=== PATIENT | male | born 1980 | race Caucasian/White ===

== ENCOUNTER 2017-03-18 07:40 | Emergency (ER) | payer OTHER ==
[2017-03-18 07:50] VITALS: BP 149/87
[2017-03-18] MEDS ORDERED: Morphine 4 MG/ML Syringe IVPUSH ONE (07:50)
[2017-03-18] MEDS ORDERED: Ketorolac 30 MG/ML SDV IVPUSH ONE (07:50)
--- NOTE | 2017-03-18 08:26 | EDM.PDOC ---
ED HPI GENERAL MEDICAL PROBLEM - General Chief Complaint: Back Pain or Injury Stated Complaint: POST FALL Time Seen by Provider: 03/18/17 08:11 Source of Information: Reports: Patient, Family () History Limitations: Reports: No Limitations - History of Present Illness INITIAL COMMENTS - FREE TEXT/NARRATIVE: Patient presents with right rib/chest pain. Two days ago he fell while checking a farm implement and hit ribcage on metal frame. He went to clinic and had xrays which were normal. This morning when he was tying his shoes he felt a sharp pop just posterior to the impact point and continues to have sharp pain there 01/14. It hurts to breathe deeply but no true dyspnea. No other injuries. Right Chest Pain Score (Numeric/FACES): 10 - Related Data Allergies Allergy/AdvReac Type Severity Reaction Status Date / Time Enaukiu-Mwf-Utt Reductase Allergy Muscle Verified 03/18/17 08:11 Inhibitor Aches Home Meds: Home Meds Gemfibrozil [Gemfibrozil] 1 tab PO BID 01/23/14 [History] Omeprazole [Prilosec] 20 mg PO DAILY 01/23/14 [History] Hydrocodone/Acetaminophen [Hydrocodon-Acetaminophn 10-325] 1 tab PO BEDTIME 05/23 [History] Social & Family History - Tobacco Use Smoking Status *Q: Current Every Day Smoker Years of Tobacco use: 20 Packs/Tins Daily: 1 Used Tobacco, but Quit: No - Caffeine Use Caffeine Use: Reports: Soda - Recreational Drug Use Recreational Drug Use: No ED ROS GENERAL - Review of Systems Review Of Systems: ROS reveals no pertinent complaints other than HPI. ED EXAM, UPPER BACK/NECK PAIN - Physical Exam Exam: See Below Exam Limited By: No Limitations General Appearance: Alert, WD/WN, No Apparent Distress Eye Exam: Bilateral Eye: EOMI, Normal Inspection, PERRL Ears Exam: Normal External Exam, Hearing Grossly Normal Nose Exam: Normal Inspection, No Blood Throat/Mouth Exam: Normal Inspection, Normal Lips, Normal Voice, No Airway Compromise Head Exam: Atraumatic, Normocephalic Neck Exam: Non-Tender, Full Range of Motion, Normal Inspection. No: Stiff Neck , Tenderness, Tender Lateral, Tender Midline Cardiovascular/Respiratory: Regular Rate, Rhythm, Normal Breath Sounds, No Respiratory Distress GI/Abdominal: Soft, No Organomegaly, No Distention Back Exam: Normal Inspection, Full Range of Motion, CVA Tenderness (R). No: CVA Tenderness (L), Paraspinal Tenderness, Vertebral Tenderness Extremities: Normal Inspection, Normal Range of Motion, Non-Tender Neurologic: No Motor/Sensory Deficits, Alert, Normal Mood/Affect, Oriented x 3 Psychiatric: Normal Affect, Normal Mood Skin Exam: Normal Color, Warm/Dry Course - Vital Signs Last Recorded V/S: Last Vital Signs Temp 99.4 F 03/18/17 07:46 Pulse 84 03/18/17 07:46 Resp 24 H 03/18/17 07:46 BP 149/87 H 03/18/17 07:46 Pulse Ox 96 03/18/17 07:46 - Orders/Labs/Meds Orders: Active Orders 24 hr Category Date Time Status Abdomen Pelvis w Cont [CT] Stat Exams 03/18/17 08:38 Ordered Ribs 2V wo Chest Rt [CR] Stat Exams 03/18/17 07:50 Taken UA W/MICROSCOPIC [URIN] Stat Lab 03/18/17 08:45 Uncollected Sodium Chloride 0.9% [Normal Saline] Med 03/18/17 09:00 Active 50 ml FLUSH ASDIRECTED Sodium Chloride 0.9% [Syrex Flush] Med 03/18/17 07:58 Active 5 ml FLUSH ASDIRECTED PRN Medication Orders Sodium Chloride (Syrex Flush) 5 ml FLUSH ASDIRECTED PRN PRN Reason: Keep Vein Open Last Admin: 03/18/17 08:28 Dose: 5 ml Admin: 03/18/17 08:27 Dose: 5 ml Sodium Chloride (Normal Saline) 50 ml FLUSH ASDIRECTED JOELLE Last Admin: 03/18/17 09:15 Dose: 50 ml Meds: Medications Generic Name Dose Route Start Last Admin Trade Name Freq PRN Reason Stop Dose Admin Sodium Chloride 5 ml 03/18/17 07:58 03/18/17 08:28 Syrex Flush FLUSH 5 ml ASDIRECTED PRN Administration Keep Vein Open Sodium Chloride 50 ml 03/18/17 09:00 03/18/17 09:15 Normal Saline FLUSH 50 ml ASDIRECTED JOELLE Administration Discontinued Medications Generic Name Dose Route Start Last Admin Trade Name Freq PRN Reason Stop Dose Admin Iopamidol 75 ml 03/18/17 08:52 03/18/17 09:15 Isovue-300 (61%) IV 03/18/17 08:53 75 ml ONETIME ONE Administration Ketorolac Tromethamine 30 mg 03/18/17 07:50 03/18/17 07:54 Toradol IVPUSH 03/18/17 07:51 30 mg ONETIME ONE Administration Morphine Sulfate 4 mg 03/18/17 07:50 03/18/17 07:57 Morphine IVPUSH 03/18/17 07:51 4 mg ONETIME ONE Administration - Re-Assessments/Exams Free Text/Narrative Re-Assessment/Exam: 03/18/17 09:44 Xrays reveal no fracture of ribs. With the RUQ pain, overall high pain level and questionable air vs colonic stool on xray I ordered CT. This reveals a non- displaced posterior 11th rib fracture but no intra-abdominal pathology or abnormality. Pt says the Toradol and Morphine have brought the pain severity down some and he is comfortable at rest but with movement he will get 10/10 quick painful spikes. Discussed findings, expectations and treatment plan with patient and his , along with the side effects of hydrocodone and flexeril and avoidance of driving, operating heavy equipment, etc. Pt discharged in stable condition. Departure - Departure Time of Disposition: 10:02 Disposition: Home, Self-Care 01 Condition: Good Clinical Impression: Closed traumatic nondisplaced fracture of rib - Discharge Information Referrals: Gilda Mccain PA-C [Primary Care Provider] - Forms: ED Department Discharge Additional Instructions: 1. Take Ibuprofen 600-800 mg every 8 hours as needed. 2. Take the hydrocodone and Flexeril (cyclobenzaprine) as directed for pain and muscle spasm. Avoid driving and operating heavy equipment for 8 hours after dosing these. 3. Follow up with your PCP for recheck and additional medication as needed. 4. Recheck immediately with PCP or ER if sudden severe shortness of breath develops. - My Orders Last 24 Hours: My Active Orders 03/18/17 07:50 Ribs 2V wo Chest Rt [CR] Stat 03/18/17 07:58 Sodium Chloride 0.9% [Syrex Flush] 5 ml FLUSH ASDIRECTED PRN 03/18/17 08:38 Abdomen Pelvis w Cont [CT] Stat 03/18/17 08:45 UA W/MICROSCOPIC [URIN] Stat 03/18/17 09:00 Sodium Chloride 0.9% [Normal Saline] 50 ml FLUSH ASDIRECTED - Assessment/Plan Last 24 Hours: My Active Orders 03/18/17 07:50 Ribs 2V wo Chest Rt [CR] Stat 03/18/17 07:58 Sodium Chloride 0.9% [Syrex Flush] 5 ml FLUSH ASDIRECTED PRN 03/18/17 08:38 Abdomen Pelvis w Cont [CT] Stat 03/18/17 08:45 UA W/MICROSCOPIC [URIN] Stat 03/18/17 09:00 Sodium Chloride 0.9% [Normal Saline] 50 ml FLUSH ASDIRECTED
[2017-03-18] MEDS: Sodium Chloride 0.9% 5 ML Syringe FLUSH PRN ×2 (08:27→08:28)
[2017-03-18] MEDS ORDERED: Iopamidol 612 MG/ML 75 ML Bottle IV ONE (08:52)
[2017-03-18] MEDS ORDERED: Sodium Chloride 0.9% 50 ML SDV FLUSH SCH (09:00)
== END 2017-03-18 10:20 | disposition home or self-care (01) ==
LOC: KA.ED 07:40
DX: S22.31XA Fracture of one rib, right side, initial encounter for closed fracture (principal); Z79.899 Other long term (current) drug therapy; Z88.8 Allergy status to other drugs, medicaments and biological substances; F17.210 Nicotine dependence, cigarettes, uncomplicated; W19.XXXA Unspecified fall, initial encounter
CPT/HCPCS: 71100; 74177; 96374; 96375; 99284; J1885; J2270; Q9967

== ENCOUNTER 2017-11-17 20:26 | Emergency (ER) | payer OTHER ==
--- NOTE | 2017-11-17 20:51 | EDM.PDOC ---
ED HPI GENERAL MEDICAL PROBLEM - General Chief Complaint: Genitourinary Problem Stated Complaint: CAN'T URINATE AFTER SURGERY Time Seen by Provider: 11/17/17 20:36 Source of Information: Reports: Patient History Limitations: Reports: No Limitations - History of Present Illness INITIAL COMMENTS - FREE TEXT/NARRATIVE: 37 YO WM presents to ER with urinary retention x 1 day. Pt reports he had an inguinal hernia repair earlier today and since his surgery has been unable to void. Pt denies any fever/chills, no nausea/vomiting. Onset: Today Duration: Day(s): (1) Location: Reports: Abdomen Quality: Reports: Ache Severity: Moderate Improves with: Reports: None Worsens with: Reports: None Associated Symptoms: Reports: No Other Symptoms - Related Data Allergies Allergy/AdvReac Type Severity Reaction Status Date / Time Sbfczzr-[id number]-Psr Reductase Allergy Muscle Verified 11/17/17 20:59 Inhibitor Aches Home Meds: Home Meds Gemfibrozil 1 tab PO BIDAC 01/23/14 [History] Omeprazole [Prilosec] 20 mg PO DAILY 01/23/14 [History] Ezetimibe 10 mg PO DAILY 03/18/17 [History] Hydrocodone/Acetaminophen [Hydrocodon-Acetaminophn 10-325] 1 tab PO BEDTIME 05/23 [History] Social & Family History - Caffeine Use Caffeine Use: Reports: Soda ED ROS GENERAL - Review of Systems Review Of Systems: See Below Constitutional: Reports: No Symptoms, Decreased Appetite HEENT: Reports: No Symptoms Respiratory: Reports: No Symptoms Cardiovascular: Reports: No Symptoms Endocrine: Reports: No Symptoms GI/Abdominal: Reports: Abdominal Pain : Reports: Urinary Retention. Denies: Discharge, Dysuria, Flank Pain, Frequency, Hematuria, Incontinence Musculoskeletal: Reports: No Symptoms Skin: Reports: No Symptoms Neurological: Reports: No Symptoms Psychiatric: Reports: No Symptoms Hematologic/Lymphatic: Reports: No Symptoms Immunologic: Reports: No Symptoms ED EXAM, RENAL/ - Physical Exam Exam: See Below Exam Limited By: No Limitations General Appearance: Alert, WD/WN, No Apparent Distress Head: Atraumatic, Normocephalic Neck: Normal Inspection, Supple, Non-Tender, Full Range of Motion Respiratory/Chest: No Respiratory Distress, Lungs Clear, Normal Breath Sounds, No Accessory Muscle Use, Chest Non-Tender Cardiovascular: Normal Peripheral Pulses, Regular Rate, Rhythm, No Edema, No Gallop, No JVD, No Murmur, No Rub GI/Abdominal: Normal Bowel Sounds, Soft, Non-Tender, No Organomegaly, No Distention, No Abnormal Bruit, No Mass (Male) Exam: Suprapubic Fullness. No: Scrotum Tenderness (L), Scrotum Tenderness (R), Testicular Mass, Testicular Tenderness (L), Testicular Tenderness (R) Back Exam: Normal Inspection, Full Range of Motion, NT Extremities: Normal Inspection, Normal Range of Motion, Non-Tender, Normal Capillary Refill, No Pedal Edema Neurological: Alert, Oriented, CN II-XII Intact, Normal Cognition, Normal Gait, Normal Reflexes, No Motor/Sensory Deficits Psychiatric: Normal Affect, Normal Mood Skin Exam: Warm, Dry, Intact, Normal Color, No Rash Lymphatic: No Adenopathy Course - Re-Assessments/Exams Free Text/Narrative Re-Assessment/Exam: 11/17/17 20:49 Bladder scan reveals- 850cc urine in bladder Departure - Departure Time of Disposition: 21:03 Disposition: Home, Self-Care 01 Condition: Good Clinical Impression: Retention of urine - Discharge Information Instructions: Indwelling Urinary Catheter Insertion, Care After, Acute Urinary Retention, Male, [id number] Referrals: Federico Brooks PERSONNEL CLERK [Primary Care Provider] - Forms: ED Department Discharge - Assessment/Plan Assessment:: 1. urinary retention- s/p instrumentation during hernia repair Plan: 1. discharge home 2. follow up in clinic for bladder training and pope cath removal 3. return to ER for worsening symptoms 4. follow up with surgery as scheduled
[2017-11-17 20:59] VITALS: BP 153/74
== END 2017-11-17 21:25 | disposition home or self-care (01) ==
LOC: KA.ED 20:26
DX: R33.8 Other retention of urine (principal); Z88.8 Allergy status to other drugs, medicaments and biological substances; Z79.899 Other long term (current) drug therapy; Z98.890 Other specified postprocedural states
CPT/HCPCS: 51701; 51702; 51798; 81001; 99283

== ENCOUNTER 2021-12-27 14:38 | Emergency (ER) | payer BC, OTHER ==
[2021-12-27] MEDS ORDERED: Diphtheria,Pertussis(Acell),Tetanus Vaccine 0.5 ML Syringe IM ONE (14:58)
[2021-12-27 14:59] VITALS: BP 131/79; PULSE 91
[2021-12-27] MEDS: Lidocaine 1% with EPINEPHrine 1:100,000 10 ML MDV ONE ×2 (15:39→15:41)
[2021-12-27] MEDS ORDERED: Lidocaine 1% with EPINEPHrine 1:100,000 10 ML MDV INJECT ONE (15:41)
[2021-12-27] MEDS ORDERED: Bacitracin/Neomycin/Polymyxin B Oint 0.9 GM U/D Packet TOP ONE (15:43)
[2021-12-27] MEDS ORDERED: Bacitracin/Neomycin/Polymyxin B Oint 0.9 GM U/D Packet ONE (15:44)
== END 2021-12-27 16:00 | disposition home or self-care (01) ==
LOC: KA.ED 14:38
DX: S61.412A Laceration without foreign body of left hand, initial encounter (principal); Z79.899 Other long term (current) drug therapy; Z88.8 Allergy status to other drugs, medicaments and biological substances; Z23 Encounter for immunization; W22.09XA Striking against other stationary object, initial encounter
CPT/HCPCS: 12001; 73130-LT; 90471; 90715; 99283; 99283-25

== ENCOUNTER 2022-04-20 01:55 | Emergency (ER) | payer BC ==
[2022-04-20] MEDS: HYDROmorphone 1 MG/ML Syringe IM ONE (02:15)
[2022-04-20] MEDS: Acetaminophen/oxyCODONE 325-5 MG Tab PO ONE (02:50)
[2022-04-20] MEDS: HYDROmorphone 1 MG/ML Syringe IVPUSH ONE (03:56)
[2022-04-20 04:05] VITALS: BP 116/68; PULSE 70
== END 2022-04-20 04:10 | disposition home or self-care (01) ==
LOC: KA.ED 01:55
DX: M54.2 Cervicalgia (principal); M25.511 Pain in right shoulder; M79.621 Pain in right upper arm; Z88.8 Allergy status to other drugs, medicaments and biological substances
CPT/HCPCS: 96372; 96374; 99283-25; A9270-GY; J1170

== ENCOUNTER 2023-06-02 19:10 | Emergency (ER) | payer BC ==
[2023-06-02] MEDS ORDERED: Ondansetron 4 MG/2 ML SDV IVPUSH ONE (19:19)
[2023-06-02] MEDS ORDERED: Sodium Chloride 0.9% 1,000 ML ONE (19:32)
[2023-06-02] MEDS ORDERED: Famotidine 20 MG/2 ML SDV IVPUSH ONE (19:35)
[2023-06-02] MEDS ORDERED: Sodium Chloride 0.9% 10 ML Syringe FLUSH PRN (19:35)
[2023-06-02] MEDS ORDERED: HYDROmorphone 1 MG/ML Syringe IVPUSH ONE (19:37)
[2023-06-02] MEDS ORDERED: Naloxone 0.4 MG/ML SDV IVPUSH PRN (19:37)
[2023-06-02] MEDS ORDERED: Sodium Chloride 0.9% 1,000 ML IV SCH (19:45)
[2023-06-02 20:03] LABS: ALANINE AMINOTRANSFERASE,ALT 22 U/L (14-63); ALBUMIN 4.21 g/dL (3.40-5.00); ALKALINE PHOSPHATASE 57 U/L (46-116); AMYLASE 46 U/L (25-125); ANION GAP 21.7 mmol/L (5-15); ASPARTATE AMNIOTRANSFERASE,AST 20 U/L (15-37); BILIRUBIN TOTAL 0.9 mg/dL (0.2-1.0); BLOOD UREA NITROGEN,BUN 48 mg/dL (7-18); CALCIUM 9.1 mg/dL (8.7-10.3); CHLORIDE,CL 97 mmol/L (98-107); CREATININE 1.22 mg/dL (0.51-1.17); ESTIMATED GFR 76 mL/min (>=60); GLUCOSE RANDOM 137 mg/dL (70-140); LIPASE 24 U/L (16-77); POTASSIUM,K 4.7 mmol/L (3.5-5.1); SODIUM,NA 137 mmol/L (136-145)
[2023-06-02] MEDS ORDERED: Iopamidol 755 Mg/ML 100 ML Bottle IV ONE (20:27)
[2023-06-02 20:30] LABS: BASOPHILS ABSOLUTE AUTO 0.02 10^3/uL (0.00-0.10); BASOPHILS PERCENT AUTO 0.3 % (0.0-1.0); EOSINOPHILS ABSOLUTE AUTO 0.14 10^3/uL (0.10-0.30); EOSINOPHILS PERCENT AUTO 1.9 % (1.0-3.0); HEMATOCRIT 48.7 % (40.0-52.0); HEMOGLOBIN 16.8 g/dL (13.0-17.0); IMMATURE GRAN ABSOLUTE AUTO 0.01 10^3/uL (0.00-0.50); IMMATURE GRAN PERCENT AUTO 0.1 % (0.0-5.0); LYMPHOCYTES PERCENT AUTO 5.4 % (20.0-40.0); MEAN CORPUSCULAR HEMOGLOBIN 31.3 pg (27.0-31.0); MEAN CORPUSCULAR HGB CONC 34.5 g/dL (32.0-36.0); MEAN CORPUSCULAR VOLUME 90.9 fL (82.0-92.0); MEAN PLATELET VOLUME 11.8 fL (7.4-10.4); MONOCYTES ABSOLUTE AUTO 0.41 10^3/uL (0.10-0.80); MONOCYTES PERCENT AUTO 5.5 % (2.0-8.0); NEUTROPHILS ABSOLUTE AUTO 6.43 10^3/uL (2.50-7.00); NEUTROPHILS PERCENT AUTO 86.8 % (50.0-70.0); PLATELET COUNT,PLT 226 10^3/uL (150-400); RED BLOOD CELL COUNT 5.36 10^6/uL (4.50-6.00); RED CELL DISTRIBUTION WIDTH 12.6 % (11.5-14.5); WHITE BLOOD CELL COUNT,WBC 7.41 10^3/uL (5.00-10.00)
[2023-06-02] MEDS ORDERED: Sodium Chloride 0.9% 50 ML IV SCH (20:30)
[2023-06-02 20:36] LABS: INFLUENZA A NAA NEGATIVE (NEGATIVE); INFLUENZA B NAA NEGATIVE (NEGATIVE)
[2023-06-02 20:37] LABS: CORONAVIRUS COVID-19 NAA NEGATIVE (NEGATIVE)
[2023-06-02 20:42] VITALS: PULSE 98
[2023-06-02] MEDS ORDERED: Sodium Chloride 0.9% 1,000 ML IV ONE (20:42)
[2023-06-02 21:26] LABS: APPEARANCE,URINE CLEAR (CLEAR); BILIRUBIN,URINE NEGATIVE (NEGATIVE); COLOR,URINE YELLOW (YELLOW); GLUCOSE,URINE NEGATIVE (NEGATIVE); KETONES,URINE NEGATIVE (NEGATIVE); LEUKOCYTE ESTERASE,URINE NEGATIVE (NEGATIVE); NITRITE,URINE NEGATIVE (NEGATIVE); OCCULT BLOOD,URINE SMALL (NEGATIVE); PH,URINE 5.5 (5.0-9.0); PROTEIN,URINE NEGATIVE (NEGATIVE); UROBILINOGEN,URINE 0.2 E.U./dL (0.2-1.0)
[2023-06-02 21:28] LABS: BACTERIA,URINE RARE /HPF (NONE TO FEW); EPITHELIAL CELLS,URINE RARE /LPF; WBC,URINE 0-5 /HPF (0-5)
[2023-06-02 21:45] VITALS: BP 125/75
[2023-06-02] MEDS ORDERED: HYDROmorphone 1 MG/ML Syringe IM ONE (21:57)
[2023-06-02] MEDS ORDERED: Promethazine 25 MG/ML SDV IM ONE (21:58)
== END 2023-06-02 22:12 | disposition home or self-care (01) ==
LOC: KA.ED 19:10
DX: K63.89 Other specified diseases of intestine (principal); R10.84 Generalized abdominal pain; R11.2 Nausea with vomiting, unspecified; E11.9 Type 2 diabetes mellitus without complications; Z79.899 Other long term (current) drug therapy; Z88.6 Allergy status to analgesic agent; Z79.84 Long term (current) use of oral hypoglycemic drugs; Z90.49 Acquired absence of other specified parts of digestive tract; Z20.822 Contact with and (suspected) exposure to COVID-19
CPT/HCPCS: 0240U; 71045; 74177; 80053; 81001; 82150; 83605; 83690; 84484; 85025; 96361; 96372; 96374; 96375; 99284; 99284-25; J1170; J2405; J2550; J3490; J7030; Q9967